=== PATIENT | male | born 1940 | race African-American/Black ===

== ENCOUNTER 2025-01-28 08:32 | Emergency (ER) | payer MEDICARE, OTHER ==
[~2025-01-28] VITALS: Ht 172.7 cm; Wt 68.0 kg
[2025-01-28 08:41] VITALS: O2SAT 100
[2025-01-28 09:12] LABS: BASOPHILS % 0.4 % (0.0-2.0); EOSINOPHILS % 0.3 % (0.0-5.0); HEMATOCRIT. 32.6 % (42.0-52.0); HEMOGLOBIN. 10.9 g/dL (14.0-18.0); LYMPHOCYTES % 13.2 % (20.0-50.0); MEAN CORPUSCULAR HEMOGLOBIN 29.5 pg (28.0-32.0); MEAN CORPUSCULAR HGB CONC 33.3 g/dL (31.0-37.0); MEAN CORPUSCULAR VOLUME 88.7 fL (80.0-94.0); MEAN PLATELET VOLUME 8.1 fl (7.4-10.4); MONOCYTES % 11.6 % (2.0-8.0); NEUTROPHILS % 74.5 % (40.0-76.0); PLATELET 266 x1000/uL (130-400); RED BLOOD CELL COUNT 3.68 mill/uL (4.7-6.1); RED CELL DISTRIBUTION WIDTH 13.4 % (11.6-14.6); WHITE BLOOD COUNT 4.1 x1000/uL (4.5-11.0)
[2025-01-28 09:23] LABS: CHLORIDE 108 mEq/L (98-107); SODIUM 138 mEq/L (136-145)
[2025-01-28 09:24] LABS: CARBON DIOXIDE 26 mEq/L (21-32)
[2025-01-28 09:25] LABS: CALCIUM 8.9 mg/dL (8.7-10.4)
[2025-01-28 09:29] LABS: CREATININE 0.8 mg/dL (0.6-1.3); GLUCOSE 87 mg/dL (70-105); UREA NITROGEN BLOOD 18 mg/dL (9-23)
[2025-01-28 09:52] VITALS: BP 138/110; PULSE 69; RESP 17; TEMP 36.8; O2SAT 97
[2025-01-28] MEDS: CARBIDOPA/LEVODOPA 25/250MG TABLET PO ONE (09:59)
== END 2025-01-28 10:00 | disposition home or self-care (01) ==
LOC: ER 08:32
DX: G20.A1 Parkinson's disease without dyskinesia, without mention of fluctuations (principal); F02.80 Dementia in other diseases classified elsewhere, unspecified severity, without behavioral disturbance, psychotic disturbance, mood disturbance, and anxiety; Z98.890 Other specified postprocedural states
CPT/HCPCS: 36415; 71045; 80048; 85025; 99284